=== PATIENT | male | born 1970 | race Caucasian/White ===

== ENCOUNTER 2024-09-06 06:17 | Day surgery (SDC) | payer OTHER ==
[~2024-09-06] VITALS: Ht 165.1 cm; Wt 84.1 kg
[~2024-09-06 06:17] MED LIST: SODIUM CHLORIDE 0.9% 1,000 ML ONE
[2024-09-06] MEDS ORDERED: PROPOFOL 1% 20 ML VIAL IVP ONE (06:18)
[2024-09-06] MEDS ORDERED: DAPA5TAB PO (06:51)
[2024-09-06] MEDS ORDERED: CHOL200074 PO (06:51)
[2024-09-06] MEDS ORDERED: FURO40TA5 PO (06:51)
[2024-09-06] MEDS ORDERED: ROSU20TA98 PO (06:51)
[2024-09-06] MEDS ORDERED: CARV3.1231 PO (06:51)
[2024-09-06] MEDS ORDERED: OMEP20CA12 PO (06:51)
[2024-09-06] MEDS ORDERED: METF-1211 PO (06:51)
[2024-09-06] MEDS: SODIUM CHLORIDE 0.9% 1,000 ML IV ONE (07:11)
[2024-09-06 07:26] LABS: GLUCOMETER DEV NAME(LOC) SDS.; GLUCOSE,POINT OF CARE 167 MG/DL (70-110)
== END 2024-09-06 10:35 | disposition home or self-care (01) ==
LOC: SURGERY 06:17
PROVIDERS: ATTEND Internal Medicine Gastroenterology
DX: I85.00 Esophageal varices without bleeding (principal); K76.6 Portal hypertension; K31.89 Other diseases of stomach and duodenum; E11.9 Type 2 diabetes mellitus without complications; Z87.891 Personal history of nicotine dependence; K70.30 Alcoholic cirrhosis of liver without ascites
CPT/HCPCS: 43244; 82962; J2704; J7030